=== PATIENT | male | born 1940 | race African-American/Black ===

== ENCOUNTER 2019-05-04 07:45 | Day surgery (SDC) | payer OTHER ==
[2019-05-01 16:50] VITALS: BMI 28.1
[2019-05-04] MEDS ORDERED: ETOMIDATE 20 MG/10 ML AMPUL IVPUSH ONE (08:40)
[2019-05-04 09:37] VITALS: TEMP 98.2
[2019-05-04 10:39] VITALS: BP 141/66; PULSE 66
--- NOTE | 2019-05-05 17:27 | PATH ---
Surgical Pathology Report Patient Name: LOUIE RAMOS [facility]. Rec. #: [id number] /Age/Gender: 1940 (Age: 78) / M Account: [id number] Location: U-ENDOSCOPY Taken: 05/04/2019 Received: 05/04/2019 Reported: 05/05/2019 Physicians: Jenn Martins M.D. Specimen(s) Received POLYP FROM CECUM Clinical History Adenoma surveillance Postoperative diagnosis: Colon polyp, diverticulosis, cecal angiodysplasia Final Diagnosis POLYP OF CECUM, POLYPECTOMY: TUBULAR ADENOMA. Electronically Signed Richard Lofton M.D. Gross Description Received in formalin, labeled "biopsy polyp from cecum" are 4 oakes, irregular portions of soft tissue ranging from 0.2-0.4 cm. in greatest dimension. The specimens are submitted in toto in one cassette. DL/05/04/2019 saudi05/04/2019
== END 2019-05-04 10:39 | disposition home or self-care (01) ==
LOC: JASU-ENDO 07:45
PROVIDERS: ATTEND Internal Medicine Gastroenterology
PROC: 0DBH8ZX Excision of Cecum, Via Natural or Artificial Opening Endoscopic, Diagnostic (ICD-10-PCS; principal; 2019-05-04 08:45)
DX: Z86.010 Personal history of colon polyps (principal); D12.0 Benign neoplasm of cecum; K55.20 Angiodysplasia of colon without hemorrhage; K64.8 Other hemorrhoids; I11.9 Hypertensive heart disease without heart failure; E78.5 Hyperlipidemia, unspecified; E11.9 Type 2 diabetes mellitus without complications; Z96.41 Presence of insulin pump (external) (internal); D50.8 Other iron deficiency anemias; Z86.73 Personal history of transient ischemic attack (TIA), and cerebral infarction without residual deficits; Z79.4 Long term (current) use of insulin
CPT/HCPCS: 88305-TC

== ENCOUNTER 2021-01-18 05:26 | Day surgery (SDC) | payer OTHER ==
[2021-01-13 16:23] VITALS: BMI 26.0
[2021-01-18] MEDS ORDERED: ETOMIDATE 20 MG/10 ML AMPUL IVPUSH ONE (10:32)
[2021-01-18 11:01] VITALS: TEMP 97.7
[2021-01-18 11:45] VITALS: BP 148/65; PULSE 64
== END 2021-01-18 11:53 | disposition home or self-care (01) ==
LOC: JASU-ENDO 05:26
PROVIDERS: ATTEND Internal Medicine Gastroenterology
PROC: 0DB68ZX Excision of Stomach, Via Natural or Artificial Opening Endoscopic, Diagnostic (ICD-10-PCS; 2021-01-18)
PROC: 0DB98ZX Excision of Duodenum, Via Natural or Artificial Opening Endoscopic, Diagnostic (ICD-10-PCS; principal; 2021-01-18 10:30)
DX: K31.7 Polyp of stomach and duodenum (principal); K44.9 Diaphragmatic hernia without obstruction or gangrene; K29.50 Unspecified chronic gastritis without bleeding; D50.0 Iron deficiency anemia secondary to blood loss (chronic); I10 Essential (primary) hypertension; E11.9 Type 2 diabetes mellitus without complications
CPT/HCPCS: 82962

== ENCOUNTER 2021-03-11 11:38 | Emergency (ER) | payer OTHER ==
[2021-03-11 12:14] VITALS: BMI 26.2
[2021-03-11] MEDS ORDERED: SODIUM CHLORIDE 1,000 ML IV STA (13:30)
[2021-03-11] MEDS ORDERED: MECLIZINE HCL 25 MG TABLET (FP) PO ONE (13:30)
[2021-03-11 13:56] LABS: BASO % 0.6 % (0-2.0); EOS % 1.3 % (0-4.5); HEMATOCRIT 30.6 % (35.4-49); HEMOGLOBIN 9.9 GM/dL (11.7-16.9); LYMPH % 28.8 % (8-40); MCH 22.2 pg (25.7-33.7); MCHC 32.2 g/dl (32.0-35.9); MEAN PLT VOLUME 6.8 fl (7.5-11.1); MONO % 9.2 % (3.8-10.2); NEUT % 60.1 % (42.8-82.8); PLATELET COUNT 283 10^3/uL (134-434); RBC 4.44 M/mm3 (4.00-5.60); RDW 20.2 % (11.9-15.9); WHITE BLOOD COUNT 6.7 K/mm3 (4.0-10.0)
[2021-03-11 14:02] LABS: INR 1.1 (0.83-1.09); PROTHROMBIN TIME (PATIENT) 13.3 SEC (9.7-13.0)
[2021-03-11 14:05] LABS: ACTIVATED PTT 34.1 SECONDS (25.2-36.5)
[2021-03-11 14:17] LABS: CHLORIDE 108 mmol/L (98-107); SODIUM 139 mmol/L (136-145)
[2021-03-11 14:20] LABS: ANION GAP 5 MMOL/L (8-16); BLOOD UREA NITROGEN 7.5 mg/dL (7-18); CALCIUM 9.1 mg/dL (8.5-10.1); CO2 27 mmol/L (21-32); GLUCOSE,RANDOM 118 mg/dL (74-106); MAGNESIUM 1.7 mg/dL (1.8-2.4)
[2021-03-11 14:23] LABS: SGPT/ALT 13 U/L (13-61)
[2021-03-11 14:24] LABS: BILIRUBIN,TOTAL 0.6 mg/dL (0.2-1); TOT PROT 9.3 g/dl (6.4-8.2)
[2021-03-11 14:26] LABS: ALK PHOS 52 U/L (45-117)
[2021-03-11 14:47] LABS: SGOT/AST 10 U/L (15-37)
[2021-03-11 15:16] VITALS: BP 160/90; PULSE 77; TEMP 98.5
== END 2021-03-11 16:53 | disposition home or self-care (01) ==
LOC: JER 11:38
PROC: 3E0337Z Introduction of Electrolytic and Water Balance Substance into Peripheral Vein, Percutaneous Approach (ICD-10-PCS; principal; 2021-03-11)
DX: R42 Dizziness and giddiness (principal)
CPT/HCPCS: 36415; 80053; 82550; 83735; 84484; 85025; 85610; 85730; 93005; 93010; 99284-25

== ENCOUNTER 2022-08-13 12:30 | Emergency (ER) | payer OTHER ==
[2022-08-13 12:46] VITALS: PULSE 70; RESP 17; TEMP 98.8; BMI 27.6
[2022-08-13] MEDS ORDERED: MECLIZINE HCL 25 MG TABLET (FP) PO ONE (14:24)
[2022-08-13] MEDS ORDERED: MECLIZINE HCL 25 MG TABLET (FP) ONE (14:34)
[2022-08-13] MEDS ORDERED: diphenhydrAMINE HCL 25 MG CAPSULE (FP) PO ONE (14:34)
[2022-08-13 15:01] LABS: BASO % 0.6 % (0-2.0); HEMATOCRIT 38.3 % (35.4-49); HEMOGLOBIN 12.5 GM/dL (11.7-16.9); LYMPH % 29.7 % (8-40); MCH 27.5 pg (25.7-33.7); MCHC 32.6 g/dl (32.0-35.9); MEAN CELL VOLUME 84.4 fl (80-96); MEAN PLT VOLUME 7.2 fl (7.5-11.1); MONO % 7.8 % (3.8-10.2); NEUT % 59.9 % (42.8-82.8); PLATELET COUNT 219 10^3/uL (134-434); RBC 4.54 M/mm3 (4.00-5.60); RDW 16.7 % (11.9-15.9); WHITE BLOOD COUNT 7.5 K/mm3 (4.0-10.0)
[2022-08-13 15:09] LABS: INR 1.1 (0.83-1.09); PROTHROMBIN TIME (PATIENT) 12.7 SEC (9.7-13.0)
[2022-08-13 15:11] LABS: ACTIVATED PTT 36.3 SECONDS (25.2-36.5)
[2022-08-13 15:34] LABS: CALCIUM 9.4 mg/dL (8.5-10.1)
[2022-08-13 15:35] LABS: ALBUMIN 3.9 g/dl (3.4-5.0); BLOOD UREA NITROGEN 9.8 mg/dL (7-18)
[2022-08-13] MEDS ORDERED: CARBAMIDE PEROXIDE 6.5% OTIC 15 ML BOTTLE AU ONE (15:37)
[2022-08-13 15:38] LABS: CREATININE 0.8 mg/dL (0.55-1.3)
[2022-08-13 15:39] LABS: BILIRUBIN,TOTAL 0.4 mg/dL (0.2-1); TOT PROT 7.4 g/dl (6.4-8.2)
[2022-08-13 17:57] VITALS: BP 123/60
[2022-08-13 18:33] LABS: URINE APPEARANCE CLEAR; URINE BILIRUBIN NEGATIVE (NEGATIVE); URINE COLOR YELLOW; URINE GLUCOSE (UA) NEGATIVE (NEGATIVE); URINE KETONE TRACE (NEGATIVE); URINE LEUK ESTERASE NEGATIVE (NEGATIVE); URINE NITRITE NEGATIVE (NEGATIVE); URINE PROTEIN NEGATIVE (NEGATIVE)
== END 2022-08-13 17:45 | disposition home or self-care (01) ==
LOC: JER 12:30
DX: R42 Dizziness and giddiness (principal)
CPT/HCPCS: 36415; 80053; 81003; 82962; 84484; 85025; 85610; 85730; 87086; 93005; 93010; 99284-25